=== PATIENT | male | born 1980 | race Caucasian/White ===

== ENCOUNTER 2018-12-11 08:12 | Inpatient (IN) | payer BC ==
[~2018-12-11] VITALS: Ht 180.3 cm; Wt 141.5 kg
[2018-12-11] VITALS (13 sets, daily range): BP systolic 120–143; BP diastolic 56–75
[2018-12-11] MEDS ORDERED: NEURONTIN 300300 M1 PO (10:35)
[2018-12-11] MEDS ORDERED: NEXIUM40 MG PO (11:04)
[2018-12-11 11:58] LABS: ABSOLUTE NEUTROPHILS 14.9 thou/uL (1.4-8.2); BASOPHILS 0.2 % (0.0-2.0); EOSINOPHILS 0.2 % (0.0-3.0); HEMATOCRIT 46.1 % (42.0-52.0); HEMOGLOBIN 15.7 gm/dL (14.0-18.0); LYMPHOCYTES 8.4 % (24.0-44.0); MCH 30.3 pg (26.0-34.0); MCV 89.2 fL (80.0-100.0); MONOCYTES 8.9 % (1.0-8.0); PLATELET COUNT 258 thou/uL (150-400); POLYS 82.3 % (36.0-66.0); RBC 5.16 mil/uL (4.50-6.00); RDW 13.2 % (10.5-14.5); WBC 18.1 thou/uL (4.0-11.0)
[2018-12-11 12:06] LABS: CALCIUM 9.2 mg/dL (8.5-10.1); CREATININE 0.8 mg/dL (0.7-1.3); POTASSIUM 4.1 mmol/L (3.5-5.1)
--- NOTE | 2018-12-11 15:09 | NUR ---
ADMITTIED FROM [facility] ER UNDER 'S CARE, CAME IN WITH ABDOMINAL PAIN/NAUSEA/VOMITING STARTED LAST NIGHT. VSS STABLE UPON ARRIVAL. AXOX4. KEPT NPO. SEEN BY AT [facility]. MED REC COMPLETE. LABS ORDERED. KEPT NPO WITH IVF. GENERAL SURGERY CONSULTED FOR POSSIBLE LAP CATHERINE. ORDERED NM HEPA PPD/CCK LATER CANCELLED BY . PT IS NOW IN SURGERY FOR LAP CATHERINE WITH . FAMILY AT BEDSIDE. RFA IV INTACT. TELE REMOVED FOR SURGERY. NO S/S ACUTE DISTRESS NOTED OR REPORTED UPON DEPARTURE FOR LAP CATHERINE. E
[2018-12-11] MEDS ORDERED: SENNA-S TABLET1 EACH PO (16:44)
[2018-12-11] MEDS ORDERED: NORCO 5-325 TA1 EACH PO (16:44)
[2018-12-12] VITALS: BP 135/60
--- NOTE | 2018-12-12 03:21 | NUR ---
PATIENT AOX4 MAKES NEEDS KNOWN. PATIENT HAD A LAP MALACHI. PAIN CONTROLLED THIS SHIFT. PATIENT TOLERATED CLEAR LIQUIDS THIS SHIFT. 4 LAP SITES ARE LOTA. PATIENT AMBULATING TO THE BATHROOM WITH STEADY GAITS. PATIENT REFUSED SCD. FAMILY AT BEDSIDE. PATIENT IN BED ASLEEP AT THIS TIME BREATHING REGULAR AND UNLABOURED.
[2018-12-12 05:00] VITALS: BP 137/67
[2018-12-12 05:18] LABS: CALCIUM 9.3 mg/dL (8.5-10.1); CREATININE 0.8 mg/dL (0.7-1.3); MAGNESIUM 2.3 mg/dL (1.8-2.4); POTASSIUM 4.5 mmol/L (3.5-5.1)
[2018-12-12 05:24] LABS: ABSOLUTE NEUTROPHILS 14.8 thou/uL (1.4-8.2); BASOPHILS 0.1 % (0.0-2.0); EOSINOPHILS 0.1 % (0.0-3.0); HEMATOCRIT 44.5 % (42.0-52.0); LYMPHOCYTES 7.3 % (24.0-44.0); MCH 30.3 pg (26.0-34.0); MCHC 33.6 g/dL (28.0-37.0); MCV 90.3 fL (80.0-100.0); MONOCYTES 9.1 % (1.0-8.0); PLATELET COUNT 229 thou/uL (150-400); POLYS 83.4 % (36.0-66.0); RBC 4.93 mil/uL (4.50-6.00); RDW 12.9 % (10.5-14.5); WBC 17.7 thou/uL (4.0-11.0)
[2018-12-12 08:00] VITALS: BP 138/65
[2018-12-12 14:32] VITALS: BP 138/65
--- NOTE | 2018-12-12 15:13 | NUR ---
Pt is alert and oriented x 4, and is independent for all ADL's. Able to ambulate the halls on his own with no difficulty. Pt took a bath on his own, no complaints of pain. 4 lap sites intact, refused SCD's. No complaints of pain, nausea or vomiting. DC instructions given with prescriptions to the pt and the girlfriend. Pt is now dc
--- NOTE | 2018-12-14 23:02 | O ---
[facility] [place] [address] [address] OPERATIVE REPORT Name: COLE WRIGHT Room #: 460-P [facility] IN M.R.#: [id number] Admission: 12/11/18 Attend Phys: Loc Kim MD Discharge: 12/12/18 Date of : 76 Report #: [id number] THIS REPORT FOR: //name// CC: Loc Kim FAM unknown Angie Turcios [facility] DATE OF SERVICE: 12/11/2018 SURGEON: Chato Liu MD. LOGISTICS ACCOUNT MANAGER: None. PREOPERATIVE DIAGNOSIS: Acalculous cholecystitis. POSTOPERATIVE DIAGNOSIS: Acute gangrenous acalculous cholecystitis. PROCEDURE: Laparoscopic cholecystectomy with intraoperative cholangiogram. ANESTHESIA: General endotracheal anesthesia and local anesthetic. ESTIMATED BLOOD LOSS: 10 mL. SPECIMEN: Gallbladder. COMPLICATIONS: None appreciated. INDICATIONS FOR PROCEDURE: This is a 38-year-old male patient with Angie Turcios in [place], [place] who has a history of gastroesophageal reflux and morbid obesity. He was directly admitted from [facility] earlier today. He has had difficulty with intermittent postprandial right upper quadrant abdominal pain over the past 2 weeks. He was seen in the outlying Emergency Room with progressive pain over 2 hours, but with a worsening of his pain over the past week. The patient underwent an abdominal ultrasound showing sludge within the gallbladder with no significant biliary ductal dilatation and a positive sonographic Amaya's sign. The CT scan showed similar findings with sludge-like bile within the gallbladder. The patient was transferred to [facility] from [facility] due to lack of surgical services. On exam, the patient had a positive Amaya's sign. He presents now for laparoscopic cholecystectomy with cholangiogram. OPERATIVE FINDINGS: Upon entrance into the abdominal cavity, the gallbladder appeared distended and gangrenous near the dome. There was no evidence for perforation. There was mild gallbladder wall thickening. The gallbladder was tense and unable to be grasped without being decompressed. As such, nearly 100 mL of bile was drained from the gallbladder with a Topel needle in order to [facility] [address] [place] [address] OPERATIVE REPORT Name: COLE WRIGHT Room #: 460-P [facility] IN M.R.#: [id number] Admission: 12/11/18 Attend Phys: Loc Kim MD Discharge: 12/12/18 Date of : 76 Report #: [id number] grasp the gallbladder. After appropriate dissection, the critical view of safety was identified including the cystic artery, cystic duct and lower edge of the gallbladder forming a window, through which the liver was visible. The cholangiogram showed free flow of contrast into the duodenal sweep. An air bubble was present within the common bile duct. This was not felt to be significant. After removal of the gallbladder from the abdominal cavity, 3 clips remained on the cystic duct stump and one clip on the cystic artery stump. No other significant intra-abdominal pathology was seen. Brandon was applied to the liver bed to ensure hemostasis. At the conclusion of the operation, the sponge, needle, and instrument counts were correct. Upon opening the gallbladder on the back table, acute cholecystitis changes were present. The gallbladder cholesterolosis was also seen. There were no stones within the gallbladder. DESCRIPTION OF PROCEDURE IN DETAIL: After the benefits and risks of the procedure were explained to the patient which include but are not limited to risks of bleeding, infection, injury to the biliary tree, injury to adjacent organs, risk of DVT, pulmonary embolus, postoperative pain and postoperative expectations, informed consent was obtained. The patient was identified in the preoperative holding area. The patient was then given IV antibiotics as documented in the chart to comply with the SCIP protocol. The patient was taken to the operating room and was placed in the supine position. The patient was given IV sedation and was intubated without incident. A time-out was performed to correctly identify the patient and procedure. SCDs were placed on the patient's bilateral lower extremities. The patient's abdomen was then prepped and draped in the standard sterile fashion with ChloraPrep. Local anesthetic was infiltrated into the skin and subcutaneous tissue. A periumbilical incision was made with a #15 blade scalpel. The 11-mm Visiport was then placed intraperitoneally with the 10-mm 0-degree angled laparoscope. After confirmation of placement within the peritoneal cavity, the scope was changed to a 10-mm 30 degree angled laparoscope and pneumoperitoneum was achieved with insufflation of carbon dioxide. The patient was placed in the reverse Trendelenburg position, rotated to the patient's left. A subxiphoid 5 mm and right subcostal 5 mm ports times 2 were placed under direct visualization after local anesthetic was infiltrated into the skin and subcutaneous tissue and appropriately sized incisions were made. Operative findings are as noted above. The dome of the gallbladder was retracted in a cephalad direction. The gallbladder peritoneum was scored medially and laterally after takedown of the adhesions to the gallbladder. Dissection was carried out around the cystic artery and cystic duct to identify each structure as entering directly into the gallbladder. The critical view as described above was seen. A Hemoclip was then placed on the cystic duct at its junction with the gallbladder. A ductotomy was made and the cholangiocatheter was passed into the cystic duct. A clip was placed, contrast was then injected and cholangiogram findings are as noted above. The cholangiocatheter was then removed and the cystic duct was [facility] [place] [address] OPERATIVE REPORT Name: COLE WRIGHT Room #: 460-P [facility] IN M.R.#: [id number] Admission: 12/11/18 Attend Phys: Loc Kim MD Discharge: 12/12/18 Date of : 76 Report #: [id number] triply clipped distal to the ductotomy. The duct was divided at the ductotomy site with the ultrasonic scalpel. The cystic artery was then divided with the similarly. The gallbladder was then dissected off the liver bed with the ultrasonic scalpel, after fully removing the gallbladder, it was placed in an Endopouch and removed through the periumbilical port site. The abdominal cavity was then reentered. Other operative findings are as noted above. The liver bed was made hemostatic with a combination of electrocautery and other hemostatic agent as documented in the chart (Brandon). After ensuring final hemostasis and ensuring that the clips were secure, the periumbilical port site fascial opening was closed with a simple interrupted 0 PDS suture under direct visualization using the Mitchel Pichardo laparoscopic fascial closure device. The ports were removed and the abdominal cavity was desufflated. The fascial suture was tied. Interrupted subcuticular 4-0 Monocryl sutures and Dermabond were used to close the skin. The patient tolerated the procedure well. The patient was awakened, extubated and taken to the recovery room in stable condition with no apparent intraoperative complications. <ELECTRONICALLY SIGNED> By: Chato Liu MD, FACS 12/14/18 [id number] Chato Liu MD, FACS /nt
== END 2018-12-12 15:25 | disposition home or self-care (01) | DRG 418 ==
LOC: 4S 08:12 → 4W 10:26
PROVIDERS: Nurse Practitioner; Surgery; ADMIT Hospitalist
PROC: 0FT44ZZ Resection of Gallbladder, Percutaneous Endoscopic Approach (ICD-10-PCS; principal; 2018-12-11)
PROC: BF13YZZ Fluoroscopy of Gallbladder and Bile Ducts using Other Contrast (ICD-10-PCS; principal; 2018-12-11)
DX: K82.A1 Gangrene of gallbladder in cholecystitis (principal); Z68.41 Body mass index [BMI] 40.0-44.9, adult; K21.9 Gastro-esophageal reflux disease without esophagitis; E66.01 Morbid (severe) obesity due to excess calories; F17.290 Nicotine dependence, other tobacco product, uncomplicated; Z71.6 Tobacco abuse counseling; Z88.0 Allergy status to penicillin
CPT/HCPCS: 10047; 50010